=== PATIENT | male | born 1955 | race Caucasian/White ===

== ENCOUNTER → 2019-10-29 13:34 | Outpatient (CLI) | payer MEDICARE, OTHER, SELFPAY ==
--- NOTE | 2019-10-29 13:43 | DI.RAD.S_ITS ---
PROCEDURE: FL SHOULDER INJECTION MR/CT RT INDICATIONS: PRIMARY OSTEOARTHRITIS OF RIGHT SHOULDER TECHNIQUE: The indications, alternatives, benefits, risks, and complications of the procedure were explained to the patient. Written informed consent was obtained and placed in the chart. The shoulder was examined fluoroscopically and a site for needle placement chosen for entry into the glenohumeral joint from an anterior approach. The skin was prepped and draped in a sterile fashion, and 1% lidocaine infiltrated from skin down to joint capsule. A spinal needle was inserted into the glenohumeral joint, and a small amount of iodinated contrast media injected to confirm intra-articular placement of the needle tip. This was followed by approximately 12 mL dilute solution of a gadolinium containing MR contrast agent. The needle was removed and a dressing was applied. The patient was given postprocedural instructions and sent to the MR suite for MR imaging. FINDINGS: A single fluoroscopic spot image demonstrates intra-articular location of injected iodinated contrast. IMPRESSION: Successful fluoroscopically guided administration of dilute Gadolinium solution into the shoulder joint for MR arthrogram. Dictated by: Gunner Arriola M.D. on 10/29/2019 at 18:08 Approved by: Gunner Arriola M.D. on 10/29/2019 at 18:08
--- NOTE | 2019-10-29 13:44 | DI.MRI.S_ITS ---
PROCEDURE: MR SHOULDER RT W CON INDICATIONS: RIGHT SHOULDER PAIN TECHNIQUE: After the administration of 12 mL of dilute intra-articular Gadolinium contrast, oblique coronal T1 and T2 spin echo with fat saturation, oblique sagittal T1 spin echo with and without fat saturation, oblique sagittal T2 fast spin echo with fat saturation, axial T1 spin echo with fat saturation through the shoulder. COMPARISON: [facility], MR, SHOULDER WITHOUT CONTRAST, 07/03/2017, 10:47. FINDINGS: Image quality: Diagnostic. Rotator cuff: There is a small irregular full-thickness tear identified involving the posterior distal supraspinatus tendon (image 10, series 8) with associated supraspinatus tendinopathy. There is also subscapularis and infraspinatus tendinopathy with intrasubstance fluid moderate grade partial-thickness tearing, most pronounced involving the infraspinatus tendon. This partial-thickness tearing appears to extend along the myotendinous junction. The teres minor tendon is intact. There is mild teres minor muscle atrophy. No significant atrophy of the other rotator cuff muscles is appreciated. Bones and bursae: No acute fracture, dislocation, or suspicious osseous lesion is identified involving the osseous structures of the right shoulder joints. There are moderate degenerative changes of the glenohumeral joint and severe degenerative changes of the acromioclavicular joint. There is adequate distention of the glenohumeral joint with the injected contrast. No loose intra-articular joint bodies are identified. Contrast is seen extending beyond the joint capsule into the subacromial subdeltoid bursa. Capsule and soft tissues: There is a large tear of the labrum that is nearly circumferential with probable sparing along the anteroinferior aspect of the labrum. This tear extends from at least the 9 o'clock position of the anterior labrum through the 12 o'clock position of the superior labrum and along the entire length of the posterior labrum to the 6 o'clock position. No large paralabral cysts are identified. The long head of biceps tendon is normally positioned within the bicipital groove. There is slight increased signal involving the intra-articular portion of this tendon. The superior, middle, and inferior glenohumeral ligaments are intact. IMPRESSION: 1. Small perforating full-thickness tear of the distal supraspinatus tendon. 2. Low hematocrit partial-thickness tearing and tendinopathy of the subscapularis and infraspinatus tendons with probable interstitial delamination of the infraspinatus tendon. 3. Near circumferential tearing of the labrum probably involves the biceps anchor. 4. Moderate tendinopathy involving the intra-articular portion of the biceps tendon. 5. Moderate to severe degenerative changes of the right shoulder joints. Dictated by: Manan Justice M.D. on 10/29/2019 at 16:56 Approved by: Manan Justice M.D. on 10/29/2019 at 17:00
== END ==
PROVIDERS: Family Provider Family Medicine; PCP Family Medicine; Referring Provider Orthopaedic Surgery; Visit Provider Orthopaedic Surgery
DX: M19.011 Primary osteoarthritis, right shoulder (principal); M25.511 Pain in right shoulder; M75.112 Incomplete rotator cuff tear or rupture of left shoulder, not specified as traumatic; S43.492A Other sprain of left shoulder joint, initial encounter
CPT/HCPCS: 23350; 73222; 77002

== ENCOUNTER → 2021-08-11 13:16 | Outpatient (CLI) | payer MEDICARE, OTHER, SELFPAY ==
[2021-08-11 15:20] LABS: BUN Creatinine Ratio 17.3 (6-22); Blood Urea Nitrogen 18 mg/dL (9-20); Estimated Glomerular Filt Rate > 60.0 mL/min (>60)
== END ==
PROVIDERS: Family Provider Family Medicine; PCP Family Medicine; Referring Provider Otolaryngology; Visit Provider Otolaryngology
DX: R59.0 Localized enlarged lymph nodes (principal)
CPT/HCPCS: 36415; 82565; 84520

== ENCOUNTER → 2021-08-13 10:27 | Outpatient (CLI) | payer MEDICARE, OTHER, SELFPAY ==
--- NOTE | 2021-08-13 10:37 | DI.CT.S_ITS ---
PROCEDURE: CT SOFT TISSUE NECK W CON INDICATIONS: Localized enlarged lymph nodes TECHNIQUE: After the administration of intravenous contrast, 3.0 mm axial sections acquired from the sella to the aortic arch. Additional oblique axial 3.0 mm sections acquired through the pharynx. 3 mm thick coronal and sagittal reformats were generated. For radiation dose reduction, the following was used: automated exposure control. COMPARISON: None. FINDINGS: Image quality: Excellent. Lymph nodes: No enlarged lymph nodes seen throughout the neck. Vessels: Visualized vasculature appears patent. Atherosclerotic calcification in both proximal internal carotid arteries results in at least moderate stenosis on the right Neck spaces: The oropharynx, nasopharynx, and pharynx demonstrate no mucosal lesions. The vocal cords, false vocal cords, pyriform sinuses, epiglottis, vallecula, and tongue base all appear normal. Extramucosal spaces appear unremarkable. Right parotid solid homogeneously enhancing nodule measures 1.8 cm in diameter. Left parotid and both submandibular glands unremarkable. Thyroid gland unremarkable. Miscellaneous: Visualized brain and orbits appear normal. Lung apices appear clear. Superficial soft tissues appear normal. Bones: No suspicious bony lesions. Visualized sinuses and mastoids appear unremarkable. Degenerative disc disease and arthropathy noted in cervical spine. IMPRESSION: 1. Right parotid nodule. Parotid nodule differential includes intraparotid lymph node, pleomorphic adenoma, Warthin's tumor or other primary salivary gland tumor. Consider histologic evaluation 2. Otherwise, no evidence of cervical adenopathy. 3. Bilateral proximal ICA atherosclerotic calcification results in at least moderate stenosis on the right. Consider follow-up duplex carotid ultrasound. Approved by: Joe Huerta M.D. on 08/13/2021 at 13:03
== END ==
PROVIDERS: Family Provider Family Medicine; PCP Family Medicine; Referring Provider Otolaryngology; Visit Provider Otolaryngology
DX: R59.0 Localized enlarged lymph nodes (principal); I65.23 Occlusion and stenosis of bilateral carotid arteries
CPT/HCPCS: 70491

== ENCOUNTER → 2021-09-10 09:54 | Outpatient (CLI) | payer MEDICARE, OTHER, SELFPAY ==
--- NOTE | 2021-09-10 | DI.US.S_ITS ---
PROCEDURE: US SOFT TISSUE HEAD AND NECK INDICATIONS: Right parotid mass. TECHNIQUE: Real-time scanning was performed of the neck region of interest, with image documentation. COMPARISON: None. FINDINGS: Image quality limited secondary to patient body habitus. There is a 2.4 x 1.4 x 1.7 centimeter hypoechoic mass in the deep lobe of the right parotid gland. The parotid mass is suboptimally visualized. The right retromandibular vein and right facial nerve are not visualized and cannot be localized in in relation to the right parotid mass. IMPRESSION: Suboptimally visualized right parotid mass and nonvisualization of the right retromandibular vein and right facial nerve. Right parotid mass is not amenable to percutaneous biopsy due to technical limitations of ultrasound guidance. Dictated by: Lisa Ledesma MD, PhD on 09/10/2021 at 12:29 Approved by: Lisa Ledesma MD, PhD on 09/10/2021 at 12:32
== END ==
PROVIDERS: Family Provider Family Medicine; PCP Family Medicine; Referring Provider Otolaryngology; Visit Provider Otolaryngology
DX: K11.8 Other diseases of salivary glands (principal)
CPT/HCPCS: 76536

== ENCOUNTER → 2022-03-15 12:49 | Outpatient (CLI) | payer MEDICARE, OTHER, SELFPAY ==
--- NOTE | 2022-03-15 13:06 | DI.CT.S_ITS ---
PROCEDURE: CT SOFT TISSUE NECK WO CON INDICATIONS: Other diseases of salivary glands TECHNIQUE: Non-contrast 3.0 mm axial sections acquired from the sella to the aortic arch. Additional oblique axial 3.0 mm sections acquired through the pharynx. 3 mm thick coronal and sagittal reformats were generated. For radiation dose reduction, the following was used: automated exposure control. COMPARISON: [facility], CT, CT SOFT TISSUE NECK W CON, 08/13/2021, 10:44. [facility], US, US SOFT TISSUE HEAD AND NECK, 09/10/2021, 10:02. FINDINGS: Image quality: Excellent. Lymph nodes: No enlarged lymph nodes seen throughout the neck. Vessels: Non-opacified vessels appear normal in caliber. Dense atherosclerotic calcification is noted. Neck spaces: The oropharynx, nasopharynx, and pharynx demonstrate no mucosal lesions. The vocal cords, false vocal cords, pyriform sinuses, epiglottis, vallecula, and tongue base all appear normal. Extramucosal spaces appear unremarkable. Glands: Within the deep lobe of the right thyroid, there is again seen a hyper dense nodule, as on series 2, image 30 that measures 1.9 by 1.4 cm in greatest axial dimension, which is similar to the 08/13/2021 examination height No definite additional parotid nodules are seen. The submandibular glands appear normal, without stones. Thyroid gland demonstrates no significant noncontrast abnormality. Miscellaneous: Visualized brain and orbits appear normal. Lung apices appear clear. Superficial soft tissues appear normal. Degenerative changes are seen throughout. Note is made of anterior fixation hardware at the C6-C7 level. IMPRESSION: There is a stable hyperdense nodule along the deep aspect of the right parotid gland, which is similar to the prior CT dated 08/13/2021. Incidental note is made of: Dense atherosclerotic calcification Anterior fixation hardware at C6-C7 Dictated by: Jairo Rosas M.D. on 03/15/2022 at 13:18 Approved by: Jairo Rosas M.D. on 03/15/2022 at 13:24
== END ==
PROVIDERS: Family Provider Family Medicine; PCP Family Medicine; Referring Provider Otolaryngology; Visit Provider Otolaryngology
DX: K11.8 Other diseases of salivary glands (principal)
CPT/HCPCS: 70490

== ENCOUNTER 2022-03-20 17:52 | Emergency (ER) | payer MEDICARE, OTHER, SELFPAY ==
[2022-03-20 17:59] VITALS: BP 167/86; PULSE 90; RESP 20; TEMP 36.9; O2SAT 97
--- NOTE | 2022-03-20 18:45 | ED.EAR ---
HPI - Ear Problem General Chief complaint: Ear Stated complaint: Left ear bleeding Time Seen by Provider: 03/20/22 18:08 Source: patient Mode of arrival: Ambulatory History of Present Illness HPI Narrative: 66-year-old male nonsmoker with history of hypertension presents with a chief complaint of bright red bleeding coming from his left ear in the absence of any known injury or trauma. He states that he was attempting to receipt his hearing aid in it sounded squishy and wet, he removed the hearing aid noted bright red blood on the device, he then attempted to clean gently with a Q-tip and noted more bright red blood and decided to come see us here. He denies any known injury, fever or chills. He does have slight decreased ability to hear from this ear. Denies recent travel. He has no runny nose, sore throat or cough. He sees local ENT Related Data Home Medications Medication Instructions Recorded Confirmed lisinopril 20 ##0 04/25/13 mg-hydrochlorothiazide 25 mg tablet (Zestoretic) omeprazole 20 mg capsule,delayed ##0 04/25/13 release pregabalin 200 mg capsule (Lyrica) 100 mg OR BID ##0 04/25/13 simvastatin 20 mg tablet (Zocor) ##0 04/25/13 hydroxyzine pamoate 25 mg capsule 25 mg OTIC Q DAY ##0 09/09/17 (Vistaril) oxycodone-acetaminophen 5 mg-325 1 tab OR Q4HP PRN ##0 09/09/17 mg tablet (Percocet) Previous Rx's Medication Instructions Recorded hydroxyzine pamoate 25 mg capsule 25 mg PO Q6H PRN #20 caps 09/09/17 (Vistaril) Allergies Allergy/AdvReac Type Severity Reaction Status Date / Time gabapentin [GABAPENTIN] Allergy Severe Unverified 12/06/17 12:25 codeine [CODEINE] Allergy Intermediate Unverified 12/06/17 12:25 Review of Systems Review of Systems Narrative: GENERAL: Denies chills, fatigue, malaise, fever, sweats. HEENT: See HPI RESPIRATORY: Denies dyspnea, cough, wheezing, hemoptysis, sputum. CARDIOVASCULAR: Denies chest pain, palpitations, orthopnea, edema, GASTROINTESTINAL: Denies nausea, vomiting, abdominal pain, diarrhea, constipation, melena. : Denies dysuria, frequency, incontinence, hematuria, urinary retention. MUSCULOSKELETAL: denies weakness, joint pain, or bony pain SKIN: Denies rash, skin lesions, or other NEUROLOGIC: Denies weakness, headache, numbness, change in speech, confusion, seizures, incoordination. PSYCHIATRIC: No concerning psychosocial issues. 12 point review of systems is negative except for those stated above Exam Narrative Exam Narrative: GEN: AOx3 and in mild distress EYES: Pupils are equal, round, and reactive to light and accommodation. Extraoccular muscles are intact bilaterally. There is no subconjunctival hemorrhage or exudate. ENT: L EAC with minimal dried blood deep within canal with a small associated laceration. TM appears in tact without obvious injury. No signs of active bleeding CHEST: Lungs are clear to auscultation bilaterally and free of wheezes, rales, or rhonchi. Heart rate is regular rhythm, there are no murmurs, clicks, rubs, or gallops. There is no chest wall tenderness. ABD: Abdomen is soft and nontender. There is no guarding or rebound. Bowel sounds are normal in all 4 quadrants. There is no mass or organomegaly. EXT: Full painless ROM of all extremities with no loss of sensation or strength. SKIN: Warm, pink, and dry. No erythema or rash Initial Vital Signs Initial Vital Signs: Vital Signs Temperature 98.5 F 03/20/22 17:59 Pulse Rate 90 03/20/22 17:59 Respiratory Rate 20 03/20/22 17:59 Blood Pressure 167/86 H 03/20/22 17:59 Pulse Oximetry 97 03/20/22 17:59 Oxygen Delivery Method 03/20/22 17:59 Course Orders Ordered: Discontinued Medications Ofloxacin (Ofloxacin 0.3% Ophth 5 Ml) 1 drops EYE-LEFT NOW ONE Stop: 03/20/22 18:56 Last Admin: 03/20/22 19:09 Dose: 1 drop Documented By: OW Consultations Consultation #1: call to patient's ENT (Nicko) who will see in the office later this week. Recommends Ofloxacin drops in the mean time Vital Signs Vital signs: Vital Signs - 8 hr 03/20/22 17:59 Temperature 98.5 F Pulse Rate 90 Respiratory Rate 20 Blood Pressure 167/86 H Pulse Oximetry 97 Oxygen Delivery Method Room Air Discharge Plan Departure Patient Disposition: Home Clinical Impression: Laceration of left ear canal Activity Restrictions/Additional Instructions: *You have been diagnosed with [laceration of left external auditory canal] *What to do: *Please continue to take your regular medications as directed. [x ] Please place 5 drops of Ofloxacin in your LEFT EAR daily until follow up *Please follow up with ENT , call tomorrow morning for an appointment. Let them know you were seen in the Emergency Department and that we ask that you be seen in follow up. We will electronically transmit a record of today's note *Do not use the hearing aid in your left ear until follow up *If you do not have a primary care provider please contact the [facility] Resource line at [phone]. They will ask some questions about your medical history and help get you set up with a doctor in the community. *Return to Emergency Department if you should have any new, worsening or concerning symptoms Prescriptions: No Action omeprazole 20 MG capsule,delayed release(DR/EC) Qty: 0 lisinopril-hydrochlorothiazide [Zestoretic] 20 MG/25 MG tablet Qty: 0 pregabalin [Lyrica] 200 MG capsule 100 mg OR BID Qty: 0 simvastatin [Zocor] 20 MG tablet Qty: 0 hydroxyzine pamoate [Vistaril] 25 MG capsule 25 mg OTIC Q DAY Qty: 0 oxycodone-acetaminophen [Percocet] 5 MG/325 MG tablet 1 tab OR Q4HP PRNQty: 0 hydroxyzine pamoate [Vistaril] 25 MG capsule 25 mg PO Q6H PRNQty: 20 0RF Referrals: Cam Mazariegos MD [Primary Care Provider] - Jorge A Maharaj MD [Physician] - Visit Report Forms: Patient Portal/API
[2022-03-20] MEDS: OFLOXACIN 0.3% OPHTH 5 ML 1 DROPS EYE-LEFT (19:09)
--- NOTE | 2022-03-20 20:19 | PC.NURSE ---
Assessment deferred to provider's assessment.
== END 2022-03-20 19:15 | disposition home or self-care (01) ==
PROVIDERS: Emergency Provider Emergency Medicine; Family Provider Family Medicine; PCP Family Medicine
DX: S01.312A Laceration without foreign body of left ear, initial encounter (principal)
CPT/HCPCS: 99282

== ENCOUNTER → 2022-11-14 16:11 | Outpatient (CLI) | payer MEDICARE, OTHER, SELFPAY ==
--- NOTE | 2022-11-14 | DI.RAD.S_ITS ---
PROCEDURE: XR WRIST RT MIN 3V INDICATIONS: RT WRIST PAIN, BASE OF RT THUMB TECHNIQUE: 4 views of the wrist were acquired. COMPARISON: None. FINDINGS: Bones: No acute fractures or dislocations. No suspicious bony lesions. Moderate degenerative changes are seen in the 1st carpometacarpal joint and triscaphe joint. Scaphoid view: Intact scaphoid. Soft tissues: No suspicious soft tissue calcifications. IMPRESSION: Moderate osteoarthrosis at the 1st carpometacarpal joint and the triscaphe joint. No acute osseous abnormality is seen. Approved by: Jerel Kent M.D. on 11/14/2022 at 20:20
== END ==
PROVIDERS: Family Provider Family Medicine; PCP Family Medicine; Referring Provider Student in an Organized Health Care Education/Training Program; Visit Provider Student in an Organized Health Care Education/Training Program
DX: M18.11 Unilateral primary osteoarthritis of first carpometacarpal joint, right hand (principal); M19.031 Primary osteoarthritis, right wrist; M25.531 Pain in right wrist; M79.644 Pain in right finger(s)
CPT/HCPCS: 73110

== ENCOUNTER → 2023-08-06 10:22 | Outpatient (CLI) | payer MEDICARE, OTHER, SELFPAY ==
--- NOTE | 2023-08-06 | DI.MRI.S_ITS ---
PROCEDURE: MR KNEE LT WO CON INDICATIONS: Pain in left knee TECHNIQUE: Noncontrast sagittal PD fast spin echo and T2 fast spin echo with fat saturation, sagittal 3-D FLASH with fat saturation; coronal T1 spin echo and PD fast spin echo with fat saturation, and axial PD fast spin echo with fat saturation through the knee. COMPARISON: [facility], RG, KNEE 3VW (RT), 01/11/2022, 10:05. FINDINGS: Image quality: Excellent. Menisci: There is horizontal tear involving the posterior horn and body of the medial meniscus. There is intrasubstance degeneration involving the body and posterior horn of the lateral meniscus with T2 hyperintense signal not extending to the articular surface. The meniscal root ligaments appear intact. Cruciate ligaments: The anterior and posterior cruciate ligaments appear intact. Medial structures: There is grade 1 sprain of the proximal medial collateral ligament of uncertain chronicity. There is thickening and heterogeneous signal of the semimembranosus tendon insertions, consistent with chronic sprain/tendinosis. No meniscocapsular separation. Visualized portions of the pes anserinus tendons appear normal. No abnormal bursal fluid. Lateral structures: The lateral collateral ligament and heads of the biceps femoris tendon appear intact. The popliteus tendon appears normal; the popliteofibular ligament appears intact. The posterosuperior and anteroinferior popliteomeniscal fascicles appear intact. The arcuate and fabellofibular ligaments appear intact, on either side of the lateral inferior geniculate artery. Iliotibial band appears normal. Anterior structures: The quadriceps and patellar tendons appear intact. Patellar alignment is normal. No femoral trochlear dysplasia or ventral trochlear prominence. No edema in the infrapatellar fat pad. Bones and cartilage: No bone marrow contusions or fractures. There is moderate tricompartmental cartilage thinning and fibrillation. Full-thickness cartilage fissures are seen in patella. Joint space: There is small knee joint effusion. There is a moderate sized multiloculated Fang's cyst. Normal appearing synovial plicae are incidentally noted. IMPRESSION: 1. Horizontal tear of the posterior horn body of the medial meniscus. 2. Intrasubstance degeneration of the body and posterior horn of the lateral meniscus. 3. Low-grade MCL sprain of uncertain chronicity. 4. Chronic sprain/tendinosis of semimembranosus tendon insertions. 5. Small knee joint effusion. 6. Moderate-sized multilocular Fang's cyst. 7. 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 on 08/07/2023 at 10:35 Approved by: Lety Reagan M.D. on 08/07/2023 at 10:59
== END ==
PROVIDERS: Family Provider Family Medicine; PCP Internal Medicine; Referring Provider Student in an Organized Health Care Education/Training Program; Visit Provider Student in an Organized Health Care Education/Training Program
DX: S83.242A Other tear of medial meniscus, current injury, left knee, initial encounter (principal); S83.412A Sprain of medial collateral ligament of left knee, initial encounter; M25.462 Effusion, left knee; M71.22 Synovial cyst of popliteal space [Baker], left knee; M25.562 Pain in left knee
CPT/HCPCS: 73721

== ENCOUNTER 2023-08-11 20:21 | Emergency (ER) | payer MEDICARE, OTHER, SELFPAY ==
[2023-08-11] VITALS (8 sets, daily range): BP systolic 133–149; BP diastolic 61–84; PULSE 80–107; RESP 16; TEMP 36.9; O2SAT 93–99; BMI 40.0
--- NOTE | 2023-08-11 20:47 | ED.SKABFB ---
HPI - Skin/Abscess/Foreign Bdy General Chief complaint: Skin/Abscess/Foreign Body Stated complaint: growths under butt cheeks/painful/ kidney pain Time Seen by Provider: 08/11/23 20:25 Source: patient Mode of arrival: Ambulatory Limitations: no limitations History of Present Illness HPI narrative: 68-year-old male with history of coronary artery disease presents by private vehicle for worsening perineal pain from abscesses. Patient has had an abscess on the inside of his right thigh for the last 4 weeks as well as a spot on his perineum that has been gradually worsening over the last week. He went to urgent care yesterday and was prescribed Bactrim, but tonight he is barely able to sit due to the pain and so he decided to present for evaluation. Denies fevers or chills. Came today because he noticed right-sided upper back pain that he was concerned involved his kidneys. Related Data Home Medications Medication Instructions Recorded Confirmed lisinopril 20 ##0 04/25/13 mg-hydrochlorothiazide 25 mg tablet (Zestoretic) omeprazole 20 mg capsule,delayed ##0 04/25/13 release pregabalin 200 mg capsule (Lyrica) 100 mg OR BID ##0 04/25/13 simvastatin 20 mg tablet (Zocor) ##0 04/25/13 hydroxyzine pamoate 25 mg capsule 25 mg OTIC Q DAY ##0 09/09/17 (Vistaril) oxycodone-acetaminophen 5 mg-325 1 tab OR Q4HP PRN ##0 09/09/17 mg tablet (Percocet) Previous Rx's Medication Instructions Recorded hydroxyzine pamoate 25 mg capsule 25 mg PO Q6H PRN #20 caps 09/09/17 (Vistaril) hydrocodone 5 mg-acetaminophen 325 1 tab PO Q8H PRN pain #10 tabs 08/11/23 mg tablet Allergies Allergy/AdvReac Type Severity Reaction Status Date / Time gabapentin [GABAPENTIN] Allergy Severe Hives Verified 08/11/23 20:35 codeine [CODEINE] Allergy Intermediate Rash Verified 08/11/23 20:35 Review of Systems Review of Systems Narrative: Negative except as noted above Exam Initial Vital Signs Initial Vital Signs: Vital Signs Temperature 98.4 F 08/11/23 20:23 Pulse Rate 80 08/11/23 20:23 Respiratory Rate 16 08/11/23 20:23 Blood Pressure 149/84 H 08/11/23 20:23 Pulse Oximetry 94 08/11/23 20:23 Oxygen Delivery Method Room Air 08/11/23 20:23 Const: Awake, alert, no acute distress, nontoxic appearing Eyes: PERRL, EOMI, conjunctiva normal ENT: Atraumatic, dentition normal, mucous membranes moist Cardiac: regular rate, regular rhythm RESP: unlabored, clear bilaterally, no wheezing GI: Atraumatic, soft, nontender : indurated area of cellulitis on inner R thigh without fluctuance. oblong fluctuant area approximately 3cm long on perineal area MSK: Atraumatic, full range of motion, pulses equal Skin: Warm, Dry, intact Neuro: AO x3, CN II-XII grossly intact, moves all extremities Procedures Abscess I/D I&D #1: Site: scrotum Sedation/analgesia: other (morphine) Local Anesthetic: bupivacaine 0.5% and with epi Amount of anesthesia used (mL): 3 Technique: incised with #11 blade Irrigation: Yes Packing used?: none Complications: pain and other (Patient unable to tolerate probing of abscess due to pain despite morphine and bupivacaine. Packing not performed. ) Course Orders Ordered: ED Orders 08/11/23 20:45 CBC Auto Diff [Complete Blood Count AUTO DIFF] Stat CMP [Comprehensive Metabolic Panel] Stat 08/11/23 20:51 CT abdomen pelvis w con Stat 08/11/23 22:29 UA Complete [Urinalysis and Microscopic] Stat Discontinued Medications Hydrocodone Bitart/Acetaminophen (Hydrocodone/Acet 5/325 Prepack) 1 bottle MISC DIRECTED ONE Stop: 08/11/23 23:05 Last Admin: 08/11/23 23:13 Dose: 1 bottle Documented By: KENNEY Morphine Sulfate (Morphine 4 Mg/Ml Inj) 4 mg IV NOW ONE Stop: 08/11/23 20:45 Last Admin: 08/11/23 21:01 Dose: 4 mg Documented By: KENNEY Morphine Sulfate (Morphine 4 Mg/Ml Inj) 4 mg IV NOW ONE Stop: 08/11/23 22:19 Last Admin: 08/11/23 22:31 Dose: 4 mg Documented By: KENNEY Vital Signs Vital signs: Vital Signs - 8 hr 08/11/23 20:23 08/11/23 21:05 08/11/23 21:06 Temperature 98.4 F Pulse Rate 80 96 H 95 H Respiratory Rate 16 Blood Pressure 149/84 H Pulse Oximetry 94 94 93 Oxygen Delivery Method Room Air 08/11/23 21:06 08/11/23 21:30 08/11/23 21:30 Temperature Pulse Rate 93 H Respiratory Rate Blood Pressure 135/61 133/64 Pulse Oximetry 95 Oxygen Delivery Method 08/11/23 21:48 08/11/23 21:48 08/11/23 22:00 Temperature Pulse Rate 98 H Respiratory Rate Blood Pressure 143/70 H 135/67 Pulse Oximetry 94 Oxygen Delivery Method 08/11/23 22:00 08/11/23 22:30 08/11/23 22:31 Temperature Pulse Rate 89 101 H 107 H Respiratory Rate Blood Pressure Pulse Oximetry 94 99 96 Oxygen Delivery Method 08/11/23 22:31 Temperature Pulse Rate Respiratory Rate Blood Pressure 138/73 Pulse Oximetry Oxygen Delivery Method MDM - Skin/Abscess/Foreign Bdy Lab Data 08/11/23 20:45 08/11/23 20:45 Labs: Lab Results 08/11/23 08/11/23 Range/Units 20:45 22:29 WBC 11.3 H (4.5-11.0) X10^3/uL RBC 3.87 L (4.5-5.9) X10^6/uL Hgb 11.4 L (13.5-17.5) g/dL Hct 32.6 L (41-53) % MCV 84.1 (80-100) fL MCH 29.5 (26-34) PG MCHC 35.1 (30-36) % RDW 14.4 (11.6-14.8) % Plt Count 182 (150-400) X10^3/uL Neut % (Auto) 73.0 (50-75) % Lymph % (Auto) 18.9 L (25-40) % [place] % (Auto) 7.5 (3-14) % Eos % (Auto) 0.2 L (2-4) % Baso % (Auto) 0.4 (0-2) % Neut # (Auto) 8200 H (9184-8428) /uL Lymph # (Auto) 2100 (5726-7081) /uL [place] # (Auto) 800 (0-900) /uL Eos # (Auto) 0 (0-450) /uL Baso # (Auto) 0 (0-100) /uL Sodium 137 (137-145) mmol/L Potassium 3.3 L (3.4-5.1) mmol/L Chloride 101 (98-107) mmol/L Carbon Dioxide 26 (22-32) mmol/L BUN 26 H (9-20) mg/dL Creatinine 1.06 (0.66-1.25) mg/dL Estimated GFR > 60 (>60) mL/min BUN/Creatinine Ratio 24.5 H (6-22) Glucose 109 (80-110) mg/dL Calcium 9.7 (8.4-10.2) mg/dL Total Bilirubin 0.6 (0.2-1.3) mg/dL AST 36 (17-59) IU/L ALT 33 (<50) IU/L Alkaline Phosphatase 48 (38-126) U/L Total Protein 7.3 (6.3-8.2) g/dL Albumin 4.2 (3.5-5.0) g/dL Globulin 3.1 (1.7-4.1) g/dL Albumin/Globulin Ratio 1.4 (1.0-2.8) Urine Color Yellow Urine Appearance Clear Urine pH 6.0 (4.5-8.0) Ur Specific [place] 1.010 (1.000-1.035) Urine Protein Trace H (Negative) Urine Glucose (UA) Negative (Negative) g/dL Urine Ketones Negative (NEGATIVE) Urine Occult Blood Negative (Negative) Urine Nitrate Negative (Negative) Urine Bilirubin Negative (NEGATIVE) Urine Urobilinogen 1.0 (0.2) E.U./dL Ur Leukocyte Esterase Negative (NEGATIVE) Urine RBC 0-1/hpf (0-5/HPF) Urine WBC 0-1/hpf (0-5/HPF) Ur Squamous Epith Cells None seen (0-5/HPF) Urine Bacteria None seen (None) Ur Culture Indicated? Cult not indicated MDM Narrative Medical decision making narrative: One week of worsening perineal abscess. There does appear to be a tender fluctuant area along the perineal area that is superficial. Laboratory work and CT imaging ordered to assess kidneys as well assess depth of abscess. If abscess is indeed superficial and does not track deeper we will perform incision and drainage at bedside. Laboratory work is reviewed, no evidence of urinary tract infection. CT scan shows no acute intra-abdominopelvic pathology, however he does have a superficial perineal abscess without deeper tracking. Wound was incised and drained per procedure note. A copious amount of foul-smelling purulent drainage was expressed from the perineal wound. Unfortunately due to pain I was unable to fully open up the abscess for probing and packing, however I was able to irrigate the wound with normal saline and no further purulent material was able to be expressed. Patient was counseled to continue to take Bactrim as prescribed. He was advised to use Sitz baths multiple times daily and after bowel movements. He was given urology referral if he continues to have pain in this area. ED return precautions discussed at bedside. Patient expressed understanding of the plan and is in agreement at this time. All questions answered at the time of discharge. Discharge Plan Departure Patient Disposition: Home Clinical Impression: Abscess of scrotum Instructions: DI for Scrotal Abscess Activity Restrictions/Additional Instructions: Continue to take the Bactrim as prescribed. Use Sitz baths at least 4-5 times daily, especially after every bowel movement. There is a referral to Urology if you have worsening pain or swelling despite the drainage of your abscess and despite taking your antibiotics. Prescriptions: New hydrocodone-acetaminophen 5-325 mg tablet 1 tab PO Q8H PRN (Reason: pain) Qty: 10 0RF No Action omeprazole 20 MG capsule,delayed release(DR/EC) Qty: 0 lisinopril-hydrochlorothiazide [Zestoretic] 20 MG/25 MG tablet Qty: 0 pregabalin [Lyrica] 200 MG capsule 100 mg OR BID Qty: 0 simvastatin [Zocor] 20 MG tablet Qty: 0 hydroxyzine pamoate [Vistaril] 25 MG capsule 25 mg OTIC Q DAY Qty: 0 oxycodone-acetaminophen [Percocet] 5 MG/325 MG tablet 1 tab OR Q4HP PRNQty: 0 hydroxyzine pamoate [Vistaril] 25 MG capsule 25 mg PO Q6H PRNQty: 20 0RF Referrals: Inder Palmer MD [Primary Care Provider] - Rambo Champion MD [Physician] - Stand Alone Forms: Patient Portal/API
--- NOTE | 2023-08-11 20:51 | DI.CT.S_ITS ---
PROCEDURE: CT ABDOMEN PELVIS W CON INDICATIONS: R FLANK PAIN, PERINEAL ABSCESS TECHNIQUE: After the administration of intravenous contrast, axial sections acquired from the lung bases to the pubic symphysis. Coronal and sagittal reformats were performed. For radiation dose reduction, the following was used: automated exposure control, adjustment of mA and/or kV according to patient size. COMPARISON: [facility], CT, ABDOMEN/PELVIS WITH CONTRAST, 09/09/2017, 14:29. FINDINGS: Image quality: Diagnostic Lung bases: Bibasilar atelectasis Heart: No significant findings. ABDOMEN: Liver: Stable hepatic hypodensity near the hepatic dome. Gallbladder: Unremarkable. Biliary ducts: Unremarkable. Pancreas: Unremarkable. Spleen: No splenomegaly Adrenal Glands: Unremarkable. Kidneys and Ureters: Kidneys are symmetric in size and enhancement, and there is no obstructive uropathy. No perinephric inflammatory changes. Ureters are normal in course and caliber. Persistent bilateral perinephric stranding likely related to senescent changes. This is not significantly changed compared to 2018 examination. Stomach and Bowel: Stomach, small bowel loops, and colon are unremarkable. Normal appendix. Peritoneum: No abnormal intraperitoneal fluid. No free air. Ventral Wall: Small fat containing umbilical hernia with partially herniated loop of adjacent small bowel. No obstruction proximally. Abdominal Nodes: No retroperitoneal or mesenteric adenopathy by size criteria. Vessels: Scattered atherosclerotic calcifications of the abdominal aorta and iliac vessels without aneurysmal dilatation. The inferior vena cava appears patent. PELVIS: Pelvic Organs: Unremarkable. Bladder: Urinary bladder thickness appears normal for degree of distention. No perivesicular inflammatory stranding. Pelvic Nodes: No enlarged lymph nodes. Miscellaneous: No inguinal hernias are seen. There is diffuse edema of the scrotum. Likely bilateral hydroceles. Postsurgical changes of prior vasectomy. There is a suspected ill-defined fluid collection with partial rim enhancement measuring approximately 3.4 x 2.9 cm in the posterior scrotal wall. No internal gas. Bones: No acute vertebral body compression fractures. Multilevel spondylitic changes throughout the imaged spine. No suspicious osseous lesions. IMPRESSION: 1. Diffuse inflammatory changes of the scrotum with suspected bilateral hydroceles. Incomplete rim enhancing fluid collection in the superficial aspect of the posterior scrotal wall measuring approximately 3.4 x 2.9 cm. This may represent an early abscess. This is suspected to be very superficial versus dermal in location. No evidence for soft tissue gas. No evidence to suggest Michelle's gangrene. 2. No acute abnormalities identified in the abdomen or pelvis. 3. Chronic findings as above. Dictated by: Coleman Ryan M.D. on 08/11/2023 at 22:47 Approved by: Coleman Ryan M.D. on 08/11/2023 at 22:53
[2023-08-11 20:58] LABS: Add Manual Diff / Slide Review NO; Basophils Absolute Auto 0 /uL (0-100); Basophils Percent Auto 0.4 % (0-2); Eosinophils Absolute Auto 0 /uL (0-450); Eosinophils Percent Auto 0.2 % (2-4); Hematocrit 32.6 % (41-53); Hemoglobin 11.4 g/dL (13.5-17.5); Lymphocytes Absolute Auto 2100 /uL (1100-4500); Lymphocytes Percent Auto 18.9 % (25-40); Mean Corpuscular HGB Conc 35.1 % (30-36); Mean Corpuscular Hemoglobin 29.5 PG (26-34); Mean Corpuscular Volume 84.1 fL (80-100); Monocytes Absolute Auto 800 /uL (0-900); Monocytes Percent Auto 7.5 % (3-14); Neutrophils Absolute Auto 8200 /uL (1500-7000); Platelet Count 182 X10^3/uL (150-400); Red Blood Cell Count 3.87 X10^6/uL (4.5-5.9); Red Cell Distribution Width 14.4 % (11.6-14.8); White Blood Cell Count 11.3 X10^3/uL (4.5-11.0)
[2023-08-11] MEDS: MORPHINE 4 MG/ML INJ IV ×2 (21:01→22:31)
[2023-08-11 21:25] LABS: Alanine Aminotransferase 33 IU/L (<50); Albumin 4.2 g/dL (3.5-5.0); Albumin Globulin Ratio 1.4 (1.0-2.8); Alkaline Phosphatase 48 U/L (38-126); Aspartate Aminotransferase 36 IU/L (17-59); BUN Creatinine Ratio 24.5 (6-22); Bilirubin Total 0.6 mg/dL (0.2-1.3); Blood Urea Nitrogen 26 mg/dL (9-20); Calcium 9.7 mg/dL (8.4-10.2); Carbon Dioxide 26 mmol/L (22-32); Chloride 101 mmol/L (98-107); Estimated Glomerular Filt Rate > 60 mL/min (>60); Globulin 3.1 g/dL (1.7-4.1); Glucose 109 mg/dL (80-110); HEMOLYSIS < 15 (0-50); Potassium 3.3 mmol/L (3.4-5.1); Sodium 137 mmol/L (137-145); Total Protein 7.3 g/dL (6.3-8.2)
[2023-08-11 22:39] LABS: Appearance Urine UA CLEAR; Bilirubin Urine UA NEGATIVE (NEGATIVE); Color Urine UA YELLOW; Glucose Urine UA NEGATIVE (Negative); Ketones Urine UA NEGATIVE (NEGATIVE); Leukocyte Esterase Urine UA NEGATIVE (NEGATIVE); Nitrite Urine UA NEGATIVE (Negative); Occult Blood Urine UA NEGATIVE (Negative); Protein Urine UA TRACE (Negative)
[2023-08-11 22:49] LABS: Bacteria Urine None Seen; Culture Indicated Urine Cult Not Indicated; RBC Urine 0-1/HPF (0-5/HPF); Squamous Epithelial Cell Urine None Seen (0-5/HPF); WBC Urine 0-1/HPF (0-5/HPF)
[2023-08-11] MEDS: HYDROCODONE/ACET 5/325 PREPACK 1 BOTTLE MISC (23:13)
== END 2023-08-11 23:20 | disposition home or self-care (01) ==
PROVIDERS: Emergency Provider Emergency Medicine; Family Provider Family Medicine; PCP Internal Medicine
DX: N49.2 Inflammatory disorders of scrotum (principal); M54.6 Pain in thoracic spine
CPT/HCPCS: 74177; 80053; 81001; 85025; 96374; 96376; 99283; 99284; J2270; Q9967

== ENCOUNTER → 2023-09-01 08:38 | Outpatient (CLI) | payer MEDICARE, OTHER, SELFPAY ==
[2023-09-01 10:10] LABS: Add Manual Diff / Slide Review NO; Basophils Absolute Auto 0 /uL (0-100); Basophils Percent Auto 0.6 % (0-2); Eosinophils Absolute Auto 0 /uL (0-450); Eosinophils Percent Auto 0.6 % (2-4); Hematocrit 37.4 % (41-53); Hemoglobin 12.8 g/dL (13.5-17.5); Lymphocytes Absolute Auto 1900 /uL (1100-4500); Mean Corpuscular HGB Conc 34.1 % (30-36); Mean Corpuscular Hemoglobin 29.3 PG (26-34); Mean Corpuscular Volume 85.9 fL (80-100); Monocytes Absolute Auto 400 /uL (0-900); Monocytes Percent Auto 6.3 % (3-14); Neutrophils Absolute Auto 3300 /uL (1500-7000); Neutrophils Percent Auto 58.5 % (50-75); Platelet Count 190 X10^3/uL (150-400); Red Blood Cell Count 4.35 X10^6/uL (4.5-5.9); White Blood Cell Count 5.6 X10^3/uL (4.5-11.0)
[2023-09-01 10:20] LABS: Hemoglobin A1C% w Est Avg Glu 6.5 % (4.0-6.0)
[2023-09-01 10:21] LABS: Appearance Urine UA CLEAR; Bilirubin Urine UA NEGATIVE (NEGATIVE); Color Urine UA YELLOW; Glucose Urine UA NEGATIVE (Negative); Ketones Urine UA NEGATIVE (NEGATIVE); Leukocyte Esterase Urine UA NEGATIVE (NEGATIVE); Nitrite Urine UA NEGATIVE (Negative); Occult Blood Urine UA NEGATIVE (Negative); Protein Urine UA NEGATIVE (Negative); Urobilinogen Urine UA 0.2 E.U./dL (0.2); pH Urine UA 6.5 (4.5-8.0)
[2023-09-01 10:27] LABS: Bacteria Urine Occasional (0-1); Culture Indicated Urine Cult Not Indicated; RBC Urine 0-1/HPF (0-5/HPF); Squamous Epithelial Cell Urine 0-1 /HPF (0-5/HPF); WBC Urine 0-1/HPF (0-5/HPF)
[2023-09-01 10:50] LABS: BUN Creatinine Ratio 21.8 (6-22); Blood Urea Nitrogen 19 mg/dL (9-20); Calcium 10.3 mg/dL (8.4-10.2); Carbon Dioxide 29 mmol/L (22-32); Chloride 102 mmol/L (98-107); Estimated Glomerular Filt Rate > 60 mL/min (>60); Glucose 114 mg/dL (80-110); HEMOLYSIS < 15 (0-50); Potassium 3.7 mmol/L (3.4-5.1); Sodium 141 mmol/L (137-145)
== END ==
PROVIDERS: Family Provider Family Medicine; PCP Internal Medicine; Referring Provider Orthopaedic Surgery; Visit Provider Orthopaedic Surgery
DX: Z01.818 Encounter for other preprocedural examination (principal); R73.9 Hyperglycemia, unspecified; Z01.812 Encounter for preprocedural laboratory examination; N39.0 Urinary tract infection, site not specified
CPT/HCPCS: 36415; 80048; 81001; 83036; 85025; 93005

== ENCOUNTER 2023-11-16 06:00 | Day surgery (SDC) | payer MEDICARE, OTHER, SELFPAY ==
[2023-11-08 09:44] VITALS: BMI 40.8
[2023-11-16] VITALS (12 sets, daily range): BP systolic 103–149; BP diastolic 55–88; PULSE 73–97; RESP 14–18; TEMP 36.2–36.6; O2SAT 92–98; BMI 40.8
--- NOTE | 2023-11-16 06:00 | DI.RAD.S_ITS ---
PROCEDURE: XR KNEE LT 1TO2V INDICATIONS: TKA TECHNIQUE: 2 view(s) of the knee acquired. COMPARISON: [facility], , KNEE 3V RIGHT, 03/11/2015, 13:42. FINDINGS: Bones: Patient is status post knee joint arthroplasty. Hardware components are in expected positions. Visualized bony structures are intact. Soft tissues: Overlying postoperative changes are noted. IMPRESSION: Expected post-operative appearance of a knee arthroplasty. Dictated by: Ronda Vázquez M.D. on 11/16/2023 at 16:23 Approved by: Ronda Vázquez M.D. on 11/16/2023 at 16:23
[2023-11-16] MEDS: VANCOMYCIN 1,000 MG/200 ML PIGGYBACK 200 MG IV (06:45)
[2023-11-16] MEDS: ACETAMINOPHEN 325 MG TABLET 975 MG PO (06:45)
[2023-11-16] MEDS: CELECOXIB 200 MG CAPSULE PO (06:46)
[2023-11-16] MEDS: LACTATED RINGERS 1,000 ML 42 ML IV ×2 (06:48→08:55)
--- NOTE | 2023-11-16 07:37 | PM.PREOP ---
Pre-operative Note Interval Note History & Physical reviewed/Exam performed by Physician: Yes Changes to H&P: No
--- NOTE | 2023-11-16 07:39 | PM.OP.1 ---
Operative Date/Time/Diagnoses Date of procedure: 11/16/23 Time of procedure: 08:00 Pre-op diagnosis: left knee OA Post-op diagnosis: same Procedure & Clinicians Procedure: Left total knee arthroplasty Same procedure as scheduled: Yes Indications: The patient has had progressively worsening left knee pain with radiographic changes consistent with arthritis. Non-operative management has failed and the patient has requested total knee replacement. The risks, benefits and alternatives to surgery were discussed with the patient prior to proceeding. Risks discussed included, but were not limited to, failure to relieve pain, stiffness, infection, nerve damage, deep venous thrombosis, pulmonary embolism, stroke, coma, heart attack, permanent paralysis and , as well as the potential need for eventual revision of the prosthetic. Surgeon: Cynthia Carmichael Industrial/Organizational Psychologist: William Stewart Click Yes if Unassisted: Yes Anesthesia Type: General and Peripheral nerve block Operative Notes Findings: Severe left knee OA Closure Type: primary Specimen(s): none sent Prosthetic devices, grafts, tissues, transplants, or devices: [employer] journey BCS 2 size 8 femur, size 6 tibia, +9 poly, 35 oval patella Estimated Blood Loss (mL): 200 Blood products transfused: none Tourniquet time (min): 0 Procedure in detail: The patient was seen in the pre-operative area, where the patient identified the left knee as the operative site and this was marked with my initials. The patient received pre-operative antibiotics, and was taken to the operating room and placed on the operative table in the supine position. After satisfactory anesthesia, a time study clerk out was performed. The left leg was encircled with a tourniquet about the proximal thigh, and the leg was prepared from the toes to the tourniquet with ChloroPrep in the usual fashion and draped through sterile drapes. Tourniquet was not used because of the patient's known peripheral vascular disease. Meticulous hemostasis was performed throughout the procedure using a werewolf. A PA was used during the procedure and was essential for intraoperative positioning and safe implantation of the components. The knee was approached through an approximately 18 cm incision centered over the patella and carried into the knee through a medial parapatellar arthrotomy. Portion of the medial and lateral meniscus was resected. Soft tissue was carefully mobilized around the patella the patella was measured with a caliper. Bone was resected from the patella and the patellar height was reconstituted with up an appropriate sized patellar component. A cover was then placed on the patella. A small amount of additional medial and lateral meniscus was resected. Pins were placed in the femur for Cori navigation. A guide was placed along the tibia. The knee was meticulously mapped and navigated including stressed and nonstress range of motion. The Cori bur was used for distal femoral resection. It looked like an appropriate distal femoral cut and the cut was made without difficulty. The rotation was assessed and the appropriate size femoral guide was placed on the distal femur and finishing cuts were made. There was no evidence of notching. The anterior, posterior and chamfer cuts were then made. The posterior osteophytes and soft tissues were then removed. The posterior capsule was injected with part of a mixture of 60 ml 0.25% Marcaine mixed with 20 ml Exparel for post operative pain control. The remainder of this mixture was injected into the capsule and subcutaneous tissues during cement curing. The tibia was prepared and the the guide was carefully navigated in order to optimize the tibial cut. The rotation was assessed. The patient was placed in extension residual medial and lateral meniscus as well as any residual bone was carefully resected. [No] additional tibia was resected. Hemostasis was achieved especially posteriorly. Additional local was injected into the posterior capsule. The femoral component was trial was placed and the notch was finished. Trial tibial and femoral components were then placed and the knee placed through a range of motion. Range of motion was [0-130], with good stability throughout the range. The trials were then removed, and the tibia was finished. The bone was prepared with pulsatile lavage, and dried with a sponge. Cement was applied and the final prosthetics placed. Excess cement was removed during and after cement curing. A brief Betadine soak was performed. After confirming there was no extruded cement posteriorly, the final tibial insert was placed. The knee was copiously irrigated and the tourniquet deflated. Hemostasis was obtained with the werewolf. The capsule was closed with interrupted Vicryl suture. The subcutaneous layer was closed with barbed sutures, and the skin with a running 3-0 V-Lock suture and Surgical glue. An Aquacel Ag dressing was applied and the patient was taken to recovery having tolerated the procedure well. Complications: none Post-operative Condition: stable Disposition: Acute Care Plan for aftercare: The patient will be maintained on a standard total knee replacement protocol with weight bearing as tolerated. The patient will receive and sequential compression devices for DVT prophylaxis. The patient will be discharged home when safe for the home environment.
[2023-11-16] MEDS: CEFAZOLIN VIAL 3 GM in SODIUM CHLORIDE 0.9% 100 ML IV (08:18)
[2023-11-16] MEDS: TRANEXAMIC ACID 1,000 MG VIAL 1000 MG INJ ×2 (08:25→09:58)
--- NOTE | 2023-11-16 08:35 | SUR.OPER ---
Supine on padded OR bed. Pillow under head, arms secured on padded armboards <90 degree abduction. Safety belt across torso. Non-operative leg secured with tape over blanket over lower leg. Operative leg secured in [place]o/Zelalem/Nathe positioner. Foam padded brace at thigh of operative leg.
[2023-11-16] MEDS: BUPIVACAINE 0.25% (PF) 60 ML, EPINEPHrine 0.3 MG INJ (08:38)
[2023-11-16] MEDS: BUPIVACAINE LIPOSOME 266 MG/20 ML VIAL INJ (08:39)
[2023-11-16] MEDS: LACTATED RINGERS 1,000 ML 100 ML IV (11:55)
[2023-11-16] MEDS: OXYCODONE IR 5 MG TABLET PO (12:34)
[2023-11-16] MEDS: ACETAMINOPHEN 325 MG TABLET 650 MG PO (12:35)
--- NOTE | 2023-11-16 13:29 | PT.IIE ---
Current Diagnoses Unilateral primary osteoarthritis, left knee (11/16/23) Surgery Performed Operation Date: 11/16/23 07:45 Actual Procedures p Total Knee Arthroplasty - Robot(Left) - Cynthia Carmichael MD Surgical History (Last Updated 11/08/23 @ 14:37 by Tasia Woo, RN) H/O vasectomy (1986) History of carpal tunnel surgery of left wrist History of carpal tunnel surgery of right wrist History of eyelid surgery History of surgery History of tonsillectomy and adenoidectomy (~1962) Hx of arthroscopy of shoulder Hx of foot surgery (09/23/22) Hx of fusion of cervical spine (2013) Hx of heart artery stent (12/31/19) Hx of sinus surgery (10/2011) S/P aorto-bifemoral bypass surgery (04/2011) Status post trigger finger release Status post trigger finger release Medical History (Last Updated 11/08/23 @ 14:42 by Tasia Woo, RN) Acid reflux Anesthesia complication COPD (chronic obstructive pulmonary disease) Diabetes (04/2023) Gout Hearing impaired History of cardioversion (01/11/20) History of COVID-19 (03/2023) HLD (hyperlipidemia) HTN (hypertension) Myocardial infarction (12/31/19) Neuropathy PRATEEK on CPAP Osteoarthritis PAD (peripheral artery disease) Tinnitus Physical Therapy Inpatient Evaluation/Re-Eval M1 PT/OT-IP Prior Functional Status Start: 11/16/23 12:46 Freq: NEEDED Status: Active Protocol: Document 11/16/23 12:45 MB (Rec: 11/16/23 13:28 MB [id number]) Medical Review Prior Functional Status Medical History Reviewed Yes Diet/Fluid Consistency Regular Communication WNLs Mobility and Gait I Activities of Daily Living and IADL's I Social History Household Members spouse Living Arrangements House Number of Floors (Floors) One Floor Number of Stairs To Enter/Railing? 2 steps with rail to enter Home Environment Standard Height Toilet,Tub/ Shower Home Equipment Front Wheel Walker,Grab Bars In Shower Employment Status Retired M2 PT-IP Current Condition Start: 11/16/23 12:46 Freq: NEEDED Status: Active Protocol: Document 11/16/23 12:45 MB (Rec: 11/16/23 13:28 MB [id number]) Physical Therapy Current Condition Current Condition Evaluation Date 11/16/23 Treatment Diagnosis Left TKR M3 PT-IP Subjective Start: 11/16/23 12:46 Freq: NEEDED Status: Active Protocol: Document 11/16/23 12:45 MB (Rec: 11/16/23 13:28 MB [id number]) Subjective Physical Therapy Visit Type Type Initial Evaluation Visit Start Time 12:45 Visit Stop Time 13:20 Number of PRODUCTION ASSISTANT Visits 0 Physical Therapy Visit Comments Patient Comments Pt and hope that pt is going home this afternoon Therapy Pain Assessment Pain When Pain Assessed At Rest Pain Present Pain Present Pain Reported Location Left Knee Intensity 6 Scale Used Numeric (0 - 10) Description Acute Pain Management Techniques Apply Cold,Distraction, Modification of Treatment,Re- positioning M4 PT-IP Mobility and Gait Start: 11/16/23 12:46 Freq: NEEDED Status: Active Protocol: Document 11/16/23 12:45 MB (Rec: 11/16/23 13:28 MB [id number]) PT-Bed Mobility Assessment Supine to Sit Supine to Sit Contact Guard Assistance,1 Person Assistance,Head of Bed Elevated,Bedrails Scooting Scooting to Edge of Bed Contact Guard Assistance PT-Transfer Assessment Sit to and From Stand Sit to and from Stand Contact Guard Assistance,1 Person Assistance,Use of Upper Extremities Equipment Transfer Assistive Device Gait Belt,Front Wheeled Walker Orthotic/Prosthetic Devices or Brace: No Transfers Transfer Destination Chair Transfer Technique Stepping Transfer Ability Level of Assist Minimal Assistance Comments Mobility Comments PT provides gait belt for pt to place around his left foot to help move his left leg to the EOB. RT arrives and discontinues O2 and sats remain in the mid 90s throughout short mobility. BP and HR in right UE in hook lyin/73, 99; sitting EOB ; 115/65, 94; standing 138/75. Pt denies light-headedness when up Gait Assessment Gait Gait Assistance Required: Minimum Assistance Distance (Feet) 4 Able to Maintain Weight Bearing Status Yes During Gait Assistive Devices Assistive Device Gait Belt,Front Wheeled Walker Orthotic/Prosthetic Devices or Brace: No Gait Deviations General Gait Pattern Antalgic,Decreased Stride Length,Decreased Feet Clearance,Flexed Trunk Factors Limiting Gait Function Factors Limiting Gait Function Decreased Strength,Limited Range of Motion,Pain,Poor Balance Comments Gait Comments Pt moves slowly and carefully to the chair PT-Balance Assessment Sitting Balance and Reactions Static Sitting Balance Ability Good Dynamic Sitting Balance Ability Good Standing Balance and Reactions Static Standing Balance Ability Good Dynamic Standing Balance Ability Fair Device Used RW M5 PT-IP Objective Assessments Start: 11/16/23 12:46 Freq: NEEDED Status: Active Protocol: Document 11/16/23 12:45 MB (Rec: 11/16/23 13:28 MB [id number]) Orientation Orientation/Cognition Level of Alertness Alert Orientation Name,Age,Birthday,Month,Date, Year,Day of Week,Place, Situation Language Function Ability No Deficits Noted Safety Awareness Understands Safety Issues Memory Description No Deficits Noted Gross Range of Motion Upper Extremity ROM Assessment Within Functional Limits Lower Extremity ROM Assessment Left Impaired Impairments Left knee AROM in supine is 0- 40 deg grossly Strength Upper Extremity Strength Assessment Within Functional Limits Lower Extremity Strength Assessment Right Impaired Comments Strength Comments Right ankle is functional and hip and knee not MMT Sensation Assessment Comments Sensation Comments Pt reports he can feel left LE and he has some post-op swelling M6 PT-IP Treatment Start: 11/16/23 12:46 Freq: NEEDED Status: Active Protocol: Document 11/16/23 12:45 MB (Rec: 11/16/23 13:28 MB [id number]) Physical Therapy Treatment Exercises Exercises Ankle Pumps,Gluteal Sets,Quad Sets,Heel Slides Education Education Provided Weight Bearing Status,Post-Op Packet,Safety M7 PT-IP Assessment and Plan Start: 11/16/23 12:46 Freq: NEEDED Status: Active Protocol: Document 11/16/23 12:45 MB (Rec: 11/16/23 13:28 [id number]) PT Summary Assessment and Plan Potential Rehabilitation Potential Good Status of Condition at Evaluation Evolving Summary Impairments Pain,ROM,Strength,Balance,Bed Mobility,Transfers,Gait, Activity Tolerance Progress Towards Goals Progressing Toward Goals Assessment Summary Pt is a pleasant 68 y/o male who is doing well post-op. He will benefit from ongoing PT to improve mobility and I. Goals Bed Mobility Goal Independent Transfer Goal Independent,Front Wheeled Walker Gait Goal Independent,Front Wheel Walker Gait Distance 100 Other Goals Pt will ascend and descend 2 steps with rail and/or LRAD with no more than CGA to allow safe home entrance. Days to Meet Goals 2 Treatment Plan Physical Therapy Treatment Plan Bed Mobility Training,Transfer Training,Gait Training, Therapeutic Exercise,Balance Retraining,Post Op Education, Discharge Planning,Hot or Cold Pack,Neuromuscular Re-ed Weight Bearing Status Weight Bearing Status Weight Bear as Tolerated Recommendations To Nursing Amount of Assist Needed 1 Person Assist Discharge Recommendations PT Discharge Recommendations Home with 20/03 Assist Available,Outpatient PT Transportation Needs at Discharge Private Vehicle
[2023-11-16] MEDS: IBUPROFEN 400 MG TABLET PO (14:00)
--- NOTE | 2023-11-16 15:10 | PT.IPTN ---
Current Diagnoses Unilateral primary osteoarthritis, left knee (11/16/23) Surgery Performed Operation Date: 11/16/23 07:45 Actual Procedures p Total Knee Arthroplasty - Robot(Left) - Cynthia Carmichael MD Physical Therapy Treatment Note M2 PT-IP Current Condition Start: 11/16/23 12:46 Freq: NEEDED Status: Active Protocol: Document 11/16/23 12:45 MB (Rec: 11/16/23 13:28 MB [id number]) Physical Therapy Current Condition Current Condition Evaluation Date 11/16/23 Treatment Diagnosis Left TKR M3 PT-IP Subjective Start: 11/16/23 12:46 Freq: NEEDED Status: Active Protocol: Document 11/16/23 15:10 SW (Rec: 11/16/23 16:26 SW [id number]) Subjective Physical Therapy Visit Type Type Treatment Note Visit Start Time 14:47 Visit Stop Time 15:10 Number of TALENT ACQUISITION OPERATIONS MANAGER Visits 1 Physical Therapy Visit Comments Patient Comments Pt hopes to go home today. Therapy Pain Assessment Pain When Pain Assessed During Mobility Pain Present Pain Present Pain Reported Location Left Knee Intensity 3 Scale Used Numeric (0 - 10) Description Acute M4 PT-IP Mobility and Gait Start: 11/16/23 12:46 Freq: NEEDED Status: Active Protocol: Document 11/16/23 15:10 SW (Rec: 11/16/23 16:26 SW [id number]) PT-Transfer Assessment Sit to and From Stand Sit to and from Stand Contact Guard Assistance,1 Person Assistance,Use of Upper Extremities Equipment Transfer Assistive Device Gait Belt,Front Wheeled Walker Orthotic/Prosthetic Devices or Brace: No Transfers Transfer Destination Chair Transfer Technique Stepping Transfer Ability Level of Assist Minimal Assistance Gait Assessment Gait Gait Assistance Required: Minimum Assistance Distance (Feet) 30 Able to Maintain Weight Bearing Status Yes During Gait Assistive Devices Assistive Device Gait Belt,Front Wheeled Walker Orthotic/Prosthetic Devices or Brace: No Gait Deviations General Gait Pattern Antalgic,Decreased Stride Length,Decreased Feet Clearance,Flexed Trunk Factors Limiting Gait Function Factors Limiting Gait Function Decreased Strength,Limited Range of Motion,Pain,Poor Balance Comments Gait Comments Pt moves slowly and carefully to the chair Stair Climbing Assessment Evaluation Level of Assist On Stairs Contact Guard Assistance Devices Stair Climbing Assistive Devices Front Wheel Walker Technique/Endurance Stair Climbing Direction Ascend and Descend Stair Climbing Technique Step to Step Number of Steps Climbed 2 Stair Climbing Set # Repetitions (reps) 1 Comments Stair Climbing Comments Educated pt on step to pattern , pt reports having x1 step up into house. PT-Balance Assessment Sitting Balance and Reactions Static Sitting Balance Ability Good Dynamic Sitting Balance Ability Good Standing Balance and Reactions Static Standing Balance Ability Good Dynamic Standing Balance Ability Fair Device Used Front wheeled walker M5 PT-IP Objective Assessments Start: 11/16/23 12:46 Freq: NEEDED Status: Active Protocol: Document 11/16/23 12:45 MB (Rec: 11/16/23 13:28 MB [id number]) Orientation Orientation/Cognition Level of Alertness Alert Orientation Name,Age,Birthday,Month,Date, Year,Day of Week,Place, Situation Language Function Ability No Deficits Noted Safety Awareness Understands Safety Issues Memory Description No Deficits Noted Gross Range of Motion Upper Extremity ROM Assessment Within Functional Limits Lower Extremity ROM Assessment Left Impaired Impairments Left knee AROM in supine is 0- 40 deg grossly Strength Upper Extremity Strength Assessment Within Functional Limits Lower Extremity Strength Assessment Right Impaired Comments Strength Comments Right ankle is functional and hip and knee not MMT Sensation Assessment Comments Sensation Comments Pt reports he can feel left LE and he has some post-op swelling M6 PT-IP Treatment Start: 11/16/23 12:46 Freq: NEEDED Status: Active Protocol: Document 11/16/23 12:45 MB (Rec: 11/16/23 13:28 MB [id number]) Physical Therapy Treatment Exercises Exercises Ankle Pumps,Gluteal Sets,Quad Sets,Heel Slides Education Education Provided Weight Bearing Status,Post-Op Packet,Safety M7 PT-IP Assessment and Plan Start: 11/16/23 12:46 Freq: NEEDED Status: Active Protocol: Document 11/16/23 15:10 SW (Rec: 11/16/23 16:26 [id number]) PT Summary Assessment and Plan Potential Rehabilitation Potential Good Status of Condition at Evaluation Evolving Summary Impairments Pain,ROM,Strength,Balance,Bed Mobility,Transfers,Gait, Activity Tolerance Progress Towards Goals Progressing Toward Goals Assessment Summary Pt able to ambulate ~30 ft, pt reported distance to get from car into home, slow jelena, with antalgic gait pattern. Pt able to ascend/descend x 2 steps with a step to pattern pt reported x1 step up to get into home, CGA gait belt donned. Pt reported improvement in pain during ambulation, stated 11/04. Pt left with nurse assist to use restroom. PT recommending home with 24/7 Assist, outpatient PT. Goals Bed Mobility Goal Independent Transfer Goal Independent,Front Wheeled Walker Gait Goal Independent,Front Wheel Walker Gait Distance 100 Other Goals Pt will ascend and descend 2 steps with rail and/or LRAD with no more than CGA to allow safe home entrance. Days to Meet Goals 2 Treatment Plan Physical Therapy Treatment Plan Bed Mobility Training,Transfer Training,Gait Training, Therapeutic Exercise,Balance Retraining,Post Op Education, Discharge Planning,Hot or Cold Pack,Neuromuscular Re-ed Weight Bearing Status Weight Bearing Status Weight Bear as Tolerated Recommendations To Nursing Amount of Assist Needed 1 Person Assist Discharge Recommendations PT Discharge Recommendations Home with 24/7 Assist Available,Outpatient PT Transportation Needs at Discharge Private Vehicle
--- NOTE | 2023-11-16 15:40 | P.DS_ITS ---
History of Present Illness History of Present Illness Date Patient Seen: 11/16/23 Time Patient Seen: 15:40 Chief complaint: Left Total Knee Arthroplasty - Robot Narrative: Patient doing well status post left total knee arthroplasty Discharge Providers Provider Discharge Date: 11/16/23 Primary care physician: Inder Palmer MD Consults: 11/16/23 06:00 Consult to Anesthesiology Routine Comment: Consulting Provider: Anesthesiologist Reason for consultation: Regional block for post operative pain control 11/16/23 11:32 Consult to Discharge Planning Routine Comment: Consult to Occupational Therapy Evaluate & Treat Comment: Physician Instructions: Evaluate and treat Consult to Physical Therapy Evaluate & Treat Comment: Physician Instructions: postop TKA protocol Discharge provider: William Stewart PA-C Summary Hospital Course Discharge Diagnosis: Left knee osteoarthritis Hospital Course: Left total knee arthroplasty Same procedure as scheduled: Yes Indications: The patient has had progressively worsening left knee pain with radiographic changes consistent with arthritis. Non-operative management has failed and the patient has requested total knee replacement. The risks, benefits and alternatives to surgery were discussed with the patient prior to proceeding. Risks discussed included, but were not limited to, failure to relieve pain, stiffness, infection, nerve damage, deep venous thrombosis, pulmonary embolism, stroke, coma, heart attack, permanent paralysis and , as well as the potential need for eventual revision of the prosthetic. Surgeon: Cynthia Carmichael Chiropractic Care: William Stewart Click Yes if Unassisted: Yes Anesthesia Type: General and Peripheral nerve block Operative Notes Findings: Severe left knee OA Closure Type: primary Specimen(s): none sent Prosthetic devices, grafts, tissues, transplants, or devices: [employer]CS 2 size 8 femur, size 6 tibia, +9 poly, 35 oval patella Estimated Blood Loss (mL): 200 Blood products transfused: none Tourniquet time (min): 0 Patient admitted to the hospital for total knee arthroplasty. Patient consented to the same. Patient underwent left total knee arthroplasty. Patient back in his room recovering well as in stable condition. Patient stable to be discharged home today. Status at Discharge Cognitive/behavioral status at discharge: at baseline, oriented Functional status at discharge: uses cane/walker Overall status at discharge: patient is progressing back to baseline Exam Vital Signs (past 8 hours): - 11/16/23 10:58 11/16/23 11:03 11/16/23 11:08 Temperature 98 F Pulse Rate 97 H 93 H 94 H Respiratory Rate 15 15 16 Blood Pressure 128/73 113/66 103/70 Pulse Oximetry 93 96 95 Oxygen Delivery Method Nasal Cannula Nasal Cannula Nasal Cannula Oxygen Flow Rate 6 6 4 11/16/23 11:13 11/16/23 11:18 11/16/23 11:35 Temperature 98 F 98 F 97.3 F L Pulse Rate 90 92 H 73 Respiratory Rate 16 16 18 Blood Pressure 111/66 110/72 107/61 Pulse Oximetry 94 94 92 Oxygen Delivery Method Nasal Cannula Nasal Cannula Oxygen Flow Rate 4 4 4 11/16/23 11:46 11/16/23 12:05 11/16/23 12:35 Temperature 97.4 F L 97.4 F L Pulse Rate 95 H 88 Respiratory Rate 18 18 Blood Pressure 115/55 L 127/63 Pulse Oximetry 97 96 Oxygen Delivery Method Nasal Cannula Oxygen Flow Rate 4 4 11/16/23 13:15 11/16/23 13:35 11/16/23 14:35 Temperature 97.2 F L 97.2 F L Pulse Rate 90 85 Respiratory Rate 14 18 18 Blood Pressure 120/83 113/64 Pulse Oximetry 97 93 92 Oxygen Delivery Method Room Air Oxygen Flow Rate 0 0 Oxygen Delivery Method Room Air Oxygen Flow Rate 0 Narrative Exam Narrative: Resting comfortably in bed. Neurovascular status is intact bilateral lower extremities. [facility] Medical History Anesthesia complication History of cardioversion (01/11/20) History of COVID-19 (03/2023) Gout Osteoarthritis Diabetes (04/2023) Acid reflux Myocardial infarction (12/31/19) HLD (hyperlipidemia) HTN (hypertension) PRATEEK on CPAP COPD (chronic obstructive pulmonary disease) Tinnitus Hearing impaired Neuropathy PAD (peripheral artery disease) Surgical History Hx of sinus surgery (10/2011) Hx of arthroscopy of shoulder S/P aorto-bifemoral bypass surgery (04/2011) History of eyelid surgery Hx of foot surgery (09/23/22) History of surgery Status post trigger finger release Status post trigger finger release History of carpal tunnel surgery of left wrist History of carpal tunnel surgery of right wrist Hx of fusion of cervical spine (2013) History of tonsillectomy and adenoidectomy (~1963) H/O vasectomy (1986) Hx of heart artery stent (12/31/19) Social History household members: spouse Smoking Status: Former smoker alcohol intake: current Discharge Assessment & Plan Assessment and Plan Assessment: Patient progressing as expected status post left total knee arthroplasty Plan of Treatment: Multimodal pain management Keep dressing clean and dry Follow up outpatient Orthopedics in 2 weeks Discharge home today in stable condition Discharge Plan Discharge orders & Medications Discharge Orders: Discharge (Order); Ordered 11/16/23 Ordered By: William Stewart Prescriptions: New acetaminophen 325 mg Tablet 650 mg PO Q6H PRN (Reason: Fever/Mild Pain (1-3)) Qty: 60 0RF aspirin 81 mg Tablet,Delayed Release (Dr/Ec) 81 mg PO BID Qty: 60 0RF Continued omeprazole 20 MG capsule,delayed release(DR/EC) 20 mg PO DAILY Qty: 0 losartan 50 mg Tablet 50 mg PO BID metformin 500 mg Tablet 500 mg PO BID chlorthalidone 25 mg Tablet 25 mg PO DAILY amlodipine 5 mg Tablet 5 mg PO DAILY tamsulosin 0.4 mg Capsule 0.4 mg PO BEDTIME hydrocodone-acetaminophen 7.5-325 mg Tablet 1 tab PO Q4-6H PRN (Reason: Pain) nitroglycerin 0.4 mg Tablet, Sublingual 0.4 mg SUBLINGUAL Q5-15M PRN (Reason: Chest Pain) Rx Instructions: do not exceed 3 doses per episode allopurinol 300 mg Tablet 300 mg PO DAILY albuterol sulfate 90 mcg/actuation Hfa Aerosol Inhaler 2 puff INHALATION Q4-6H PRN (Reason: Shortness Of Breath) rosuvastatin 40 mg Tablet 40 mg PO BEDTIME Spiriva Respimat 2.5 mcg/actuation Mist 2 inh INHALATION QAM tadalafil [Cialis] 20 mg Tablet 20 mg PO DAILY PRN (Reason: Sexual Activity) Rx Instructions: administer approximately 30min before sexual activity; do not use more than 1 dose per 24hrs Discontinued aspirin [Aspir-81] 81 mg Tablet,Delayed Release (Dr/Ec) 81 mg PO DAILY Follow up/Referrals: Inder Palmer MD [Primary Care Provider] - Cynthia Carmichael MD [Physician] - As previously scheduled (Two weeks as scheduled) Diet/Activity/Treatments Diet: Diet as Tolerated Activity: Weight-bearing as tolerated Cold/Heat Therapy: Ice to knee as needed Skin/Wound/Dressing Care Report to your healthcare provider any signs of infection, such as:: chills, fever, night sweats, increased pain, unusual drainage and unusual redness Dressing: Keep dressing clean and dry Visit Report/Discharge Packet Instructions: DI for Knee Replacement Stand Alone Forms: Patient Portal/API, Surgery Discharge Discharge Data Primary Care Provider: Inder Palmer Attending Provider: Cynthia Carmichael VTE Deep Vein Thrombosis/Pulmonary Embolism Present on Admission: No
--- NOTE | 2023-11-16 16:24 | PC.NURSE ---
Day shift: Discharge instructions gone over with patient. All questiosn answered, patient stated understanding. PIVs removed prior to discharge. All belongings with patient. PCT Mando escorted patient via wheelchair downstairs to exit where patient's to drive him home.
== END 2023-11-16 16:33 | disposition home or self-care (01) ==
LOC: OR 06:01 → AC 06:01
PROVIDERS: Family Provider Family Medicine; PCP Internal Medicine; Referring Provider Orthopaedic Surgery; Visit Provider Orthopaedic Surgery
PROC: 0SRD0JZ Replacement of Left Knee Joint with Synthetic Substitute, Open Approach (ICD-10-PCS; CPT 27447; principal; 2023-11-16 07:45)
DX: M17.12 Unilateral primary osteoarthritis, left knee (principal); G89.18 Other acute postprocedural pain; M25.762 Osteophyte, left knee
CPT/HCPCS: 27447; 64450; 73560; 82962; 97110; 97116; 97161; 97530; C1776; C9290; J0171; J0330; J0690; J1100; J1885; J2405; J2704; J3010

== ENCOUNTER → 2025-04-08 13:17 | Outpatient (CLI) | payer MEDICARE, OTHER, SELFPAY ==
[2023-11-16 12:01] VITALS: BMI 40.8
--- NOTE | 2025-04-08 13:18 | DI.CT.S_ITS ---
PROCEDURE: CT SOFT TISSUE NECK W CON INDICATIONS: Neck Mass TECHNIQUE: After the administration of intravenous contrast, 3.0 mm axial sections acquired from the sella to the aortic arch. Additional oblique axial 3.0 mm sections acquired through the pharynx. 3 mm thick coronal and sagittal reformats were generated. For radiation dose reduction, the following was used: automated exposure control. COMPARISON: [facility], CT, CT SOFT TISSUE NECK WO CON, 03/15/2022, 13:04. [facility], CT, CT SOFT TISSUE NECK W CON, 08/13/2021, 10:44. FINDINGS: Image quality: Excellent. Lymph nodes: No enlarged lymph nodes seen throughout the neck. Vessels: Visualized vasculature appears patent. Atherosclerotic vascular calcifications with moderate narrowing of the right proximal ICA. Neck spaces: A marker was placed on the right lateral neck. The marker overlies the right sternocleidomastoid and submandibular gland. No abnormalities are seen deep to the marker. A few normal-sized lymph nodes are seen around the region of the marker. The oropharynx, nasopharynx, and pharynx demonstrate no mucosal lesions. The vocal cords, false vocal cords, pyriform sinuses, epiglottis, vallecula, and tongue base all appear normal. Extramucosal spaces appear unremarkable. Glands: Again seen mass in or deep to the right parotid gland measuring 1.9 cm. The parotid and submandibular glands otherwise appear normal. Thyroid gland demonstrates no significant abnormality. Miscellaneous: Visualized brain and orbits appear normal. Lung apices appear clear. Superficial soft tissues appear normal. Bones: No suspicious bony lesions. Bilateral maxillary sinus mucous retention cysts. Visualized sinuses and mastoids otherwise appear unremarkable. Degenerative changes status post C6-C7 ACDF. IMPRESSION: No abnormalities are seen deep to the marker placed on the right lateral neck. Again seen mass in or deep to the right parotid gland measuring up to 1.9 cm. Differential again includes lymph node versus primary parotid neoplasm. Dictated by: Clyde Castaneda M.D. on 04/08/2025 at 17:48 Approved by: Clyde Castaneda M.D. on 04/08/2025 at 17:53
[2025-04-08 13:41] LABS: Estimated Glomerular Filt Rate > 60 mL/min (>60)
== END ==
PROVIDERS: Family Provider Family Medicine; PCP Internal Medicine; Referring Provider Otolaryngology; Visit Provider Otolaryngology
DX: R22.1 Localized swelling, mass and lump, neck (principal); J34.1 Cyst and mucocele of nose and nasal sinus; I25.10 Atherosclerotic heart disease of native coronary artery without angina pectoris
CPT/HCPCS: 36415; 70491; 82565; Q9967

== ENCOUNTER → 2025-07-25 10:47 | Outpatient (CLI) | payer MEDICARE, OTHER, SELFPAY ==
[2023-11-16 12:01] VITALS: BMI 40.8
--- NOTE | 2025-07-25 10:50 | DI.US.S_ITS ---
PROCEDURE: US HALEIGH LIMITED SINGLE LEVEL INDICATIONS: Peripheral artery disease-HALEIGH AND TBI TECHNIQUE: Ankle-brachial indices were obtained bilaterally and recorded. COMPARISON: None. FINDINGS: Right dorsalis pedis artery: 40 cm/s with trace plaque Right distal posterior tibial artery: 155 cm/s with mild plaque Left dorsalis pedis artery: 60 cm/s with trace plaque Left distal posterior tibial artery: 99 cm/s with mild plaque Right great toe 80 mmHg, TBI of 0.66 Left great toe 78 mmHg, TB of 0.60 Right arm systolic blood pressure of 122 mmHg Right leg systolic blood pressure of 127 mmHg Left arm systolic blood pressure of 129 mmHg Left leg systolic blood pressure of 127 mmHg IMPRESSION: 1. Bilateral normal ankle brachial indices. 2. Bilateral abnormal toe brachial indexes. 3. Increased systolic velocity in the bilateral posterior tibial arteries, concerning for 50-99% stenosis of the right posterior tibial artery and 20-49% stenosis of the left posterior tibial artery. Dictated by: Avi Porras M.D. on 07/25/2025 at 14:50 Approved by: Avi Porras M.D. on 07/25/2025 at 15:01
--- NOTE | 2025-07-25 10:50 | DI.CT.S_ITS ---
PROCEDURE: CT ANGIO ABD AORTA RUNOFF INDICATIONS: Peripheral artery disease-[place] AND TBI TECHNIQUE: After the administration of intravenous contrast, 2.5 mm sections acquired from T12 to the feet, with optional delayed image acquisition from the knees to the feet. 3-dimensional maximum intensity projection (MIP) coronal and sagittal reformats, and/or 3-dimensional volume rendering reformatting was then performed. For radiation dose reduction, the following was used: automated exposure control. COMPARISON: None. FINDINGS: Image Quality: Motion degraded. Abdominal aorta: Moderate atherosclerotic disease distally. Splanchnic vessels: Patent. Moderate atherosclerotic disease of the renal arteries, right greater than left. Right lower extremity: There is a patent aortobifemoral bypass graft. Long segments of 25 to 50% narrowing of the superficial femoral artery. Tandem, 25-50% narrowing of the proximal popliteal artery. Poor opacification of the posterior tibial and popliteal artery at the mid calf. Anterior tibial artery is patent throughout the course. Suspected three-vessel runoff. Left lower extremity: Patent aortobifemoral bypass graft. Tandem, short segments of less than 25% stenosis of the mid and distal superficial femoral artery and proximal popliteal artery. Part passive occasion of the calf vessels. Suspected three- vessel runoff. Lower Chest: No significant findings. ABDOMEN: Liver: No solid mass. Gallbladder: No radiopaque gallstones or wall thickening. Biliary ducts: No biliary dilation. Pancreas: No ductal dilation. Spleen: Size is within normal limits. Adrenal Glands: No adrenal nodules. Kidneys and Ureters: No hydronephrosis. No solid mass. No complex renal cystic lesion which requires follow up. Stomach and Bowel: Normal colonic caliber, without significant wall thickening. Peritoneum: No abnormal intraperitoneal fluid. No free air. Ventral Wall: No hernia. Abdominal Nodes: No retroperitoneal or mesenteric adenopathy by size criteria. Vessels: Aorta and inferior vena cava are normal in size. PELVIS: Pelvic Organs: Prostate is enlarged. Bladder: Unremarkable. Pelvic Nodes: No enlarged lymph nodes. Miscellaneous: No inguinal hernias are seen. Bones: No aggressive osseous abnormality. Left total knee arthroplasty. IMPRESSION: Patent aortobifemoral bypass graft. Multifocal 25-50% narrowing of the right superficial femoral artery and popliteal artery. Poor opacification of the calf vessels are likely due to artifact over occlusion. Multifocal less than 25% narrowing of the left superficial femoral artery and popliteal artery. Poor opacification of the calf vessels, again likely artifact. Dictated by: Levi Keane M.D. on 07/25/2025 at 13:50 Approved by: Levi Keane M.D. on 07/25/2025 at 13:57
[2025-07-25 11:35] LABS: Estimated Glomerular Filt Rate > 60 mL/min (>60)
== END ==
PROVIDERS: Radiology Diagnostic Radiology; Family Provider Family Medicine; PCP Internal Medicine; Referring Provider Physician Assistant; Visit Provider Physician Assistant
DX: I73.9 Peripheral vascular disease, unspecified (principal); I70.0 Atherosclerosis of aorta; N40.0 Benign prostatic hyperplasia without lower urinary tract symptoms
CPT/HCPCS: 36415; 75635; 82565; 93922; Q9967